=== PATIENT | female | born 1990 | race American Indian/Alaskan Native ===

== ENCOUNTER 2020-08-15 14:52 | Emergency (ER) | payer SELFPAY ==
[2020-08-15 14:57] VITALS: BP 131/93
[2020-08-15 17:16] LABS: HCG Qualitative,Urine Negative (Negative)
[2020-08-15 17:19] LABS: Bilirubin,Urine NEG (Negative); Blood,Urine LG (Negative); Color,Urine Amber (Yellow); Mucus,Urine 3+ /HPF; Urobilinogen,Urine < 2.0 mg/dL (<2.0)
[2020-08-15 17:20] LABS: Protein,Urine >500 mg/dL (Negative); RBC,Urine > 182.0 /HPF (0.0-6.0); WBC,Urine > 182.0 /HPF (0.0-6.0)
--- NOTE | 2020-08-15 18:02 | Emergency Department Report ---
ED Female HPI - General Chief complaint: Urogenital-Female Stated complaint: BLOOD IN URINE Time Seen by Provider: 08/15/20 16:06 Source: patient Mode of arrival: Ambulatory Limitations: No Limitations - History of Present Illness Initial comments: The patient was evaluated in the emergency department for symptoms described in the history of present illness. He/she was evaluated in the context of the global COVID-19 pandemic, which necessitated consideration that the patient might be at risk for infection with the virus that causes COVID-19. In stitutional protocols and algorithms that pertain to the evaluation of patients at risk for COVID-19 are in a state of rapid change based on information released by regulatory bodies including the CDC and federal and state organizations. These policies and algorithms were followed during the patient's care in the emergency department. Please note that these policies, procedures and recommendations changed on a rapid basis. 29-year-old -[place] female presents to the emergency room stating she has bloody urine since yesterday. Patient denies any fever chills denies any vaginal discharge or vaginal bleeding. Patient admits to nausea but no vomiting. She reports she has suprapubic pelvic pain. Denies any known drug allergies currently takes no medications on a daily basis and is followed by the health department or primary care. MD Complaint: dysuria, pelvic pain Onset/Timin -: days(s) Location: suprapubic Severity scale (0 -10): 7 Quality: aching Consistency: intermittent Improves with: none Worsens with: urination Are you Now?: No - Related Data Previous Rx's Medication Instructions Recorded Last Taken Type Nitrofurantoin [facility] 100 mg PO Q12HR 10 Days #20 capsule 08/15/20 Unknown Rx [Macrobid CAP] Allergies Allergy/AdvReac Type Severity Reaction Status Date / Time No Known Allergies Allergy Unverified 08/15/20 14:54 ED Review of Systems ROS: Stated complaint: BLOOD IN URINE Other details as noted in HPI Comment: All other systems reviewed and negative ED Past Medical Hx - Past Medical History Previous Medical History?: No - Surgical History Past Surgical History?: No - Social History Smoking Status: Never Smoker - Medications Home Medications: Home Medications Medication Instructions Recorded Confirmed Last Taken Type Nitrofurantoin [facility] 100 mg PO Q12HR 10 Days #20 capsule 08/15/20 Unknown Rx [Macrobid CAP] ED Physical Exam - General Limitations: No Limitations General appearance: alert, in no apparent distress - Head Head exam: Present: atraumatic, normocephalic - Eye Eye exam: Present: normal appearance - ENT ENT exam: Present: mucous membranes moist - Neck Neck exam: Present: normal inspection, full ROM - Respiratory Respiratory exam: Absent: accessory muscle use - Cardiovascular Cardiovascular Exam: Present: regular rate, normal rhythm. Absent: systolic murmur, diastolic murmur, rubs, gallop - GI/Abdominal GI/Abdominal exam: Present: soft, tenderness. Absent: distended - Extremities Exam Extremities exam: Present: full ROM - Back Exam Back exam: Present: normal inspection - Neurological Exam Neurological exam: Present: alert, oriented X3, normal gait - Psychiatric Psychiatric exam: Present: normal affect, normal mood - Skin Skin exam: Present: warm, dry, intact, normal color. Absent: rash ED Course Vital Signs 08/15/20 14:55 Temperature 98.3 F Pulse Rate 83 Respiratory 14 Rate Blood Pressure 131/93 O2 Sat by Pulse 92 Oximetry ED Medical Decision Making - Lab Data Laboratory Tests 08/15/20 16:30 Urine Color Cecy Urine Turbidity Cloudy Urine pH 6.0 Ur Specific [place] 1.026 Urine Protein >500 Urine Glucose (UA) Neg Urine Ketones Neg Urine Blood Lg Urine Nitrite Neg Ur Reducing Substances Not Reportable Urine Bilirubin Neg Urine Ictotest Not Reportable Urine Urobilinogen < 2.0 Ur Leukocyte Esterase Mod Urine WBC (Auto) > 182.0 H Urine RBC (Auto) > 182.0 U Epithel Cells (Auto) 5.0 Urine WBC Clumps 1+ Urine Mucus 3+ Urine HCG, Qual Negative - Medical Decision Making 29-year-old -[place] female presents to the emergency room stating she has bloody urine since yesterday. Patient denies any fever chills denies any vaginal discharge or vaginal bleeding. Patient admits to nausea but no vomiting. She reports she has suprapubic pelvic pain. Denies any known drug allergies currently takes no medications on a daily basis and is followed by the health department or primary care. Patient be treated for urinary tract infection with Macrobid. Informed patient she can take Tylenol ibuprofen increase her water intake. Follow-up with [facility] Critical care attestation.: If time is entered above; I have spent that time in minutes in the direct care of this critically ill patient, excluding procedure time. ED Disposition Clinical Impression: UTI (urinary tract infection) Disposition: - TO HOME OR SELFCARE Is pt being admited?: No Does the pt Need Aspirin: No Condition: Stable Instructions: Urinary Tract Infection, Adult, [id number] Additional Instructions: Urinalysis shows you have a urinary tract infection. Please complete your antibiotics increase your water intake and follow-up with an [facility] for repeat urine in 5 to 7 days. Prescriptions: Nitrofurantoin [facility] [Macrobid CAP] 100 mg PO Q12HR 10 Days #20 capsule Referrals: [facility] [Primary Care Provider] - 3-5 Days [facility] [Provider Group] - 3-5 Days Forms: Work/School Release Form(ED)
== END 2020-08-15 18:10 | disposition home or self-care (01) ==
LOC: ED 14:52
DX: N39.0 Urinary tract infection, site not specified (principal); Z79.899 Other long term (current) drug therapy
CPT/HCPCS: 81001; 81025; 99283